=== PATIENT | female | born 1980 | race Caucasian/White ===

== ENCOUNTER 2018-12-03 13:34 | Inpatient (IN) | payer OTHER ==
[~2018-12-03] VITALS: Ht 162.6 cm; Wt 107.3 kg
--- OUTSIDE RECORDS SUMMARY | ~2018-12-03 | XMS | Clinical Summary ---
Demographics + + + | Address | [address] [place] [address] | | | [place] [address] | + + + | Home Phone | | + + + | Preferred Language | Unknown | + + + | Marital Status | | + + + | Methodist Affiliation | Unknown | + + + | Race | Unknown | + + + | Ethnic Group | Unknown | + + + Author + + + | Author | [facility] | | | and [place] | + + + | Organization | [facility] | | | and [place] | + + + | Address | Unknown | + + + | Phone | Unavailable | + + + Support + + +---------+ + | Name | Relationship | Address | Phone | + + +---------+ + | Stan Guidry | ECON | Unknown | | + + +---------+ + Care Team Providers + +------+ + | Care Coupon Clerk Name | Role | Phone | + +------+ + | Marc Villela MD | PCP | | + +------+ + Allergies No Known Allergies Medications + + + +---------+------+------+-------+ | Medication | Sig | Dispensed | Refills | Star | End | Statu | | | | | | t | Date | s | | | | | | Date | | | + + + +---------+------+------+-------+ | FLUoxetine | Take 20 mg by mouth | | 0 | | | Activ | | (PROZAC) 20 mg | Daily. | | | | | e | | capsule | | | | | | | + + + +---------+------+------+-------+ Active Problems + + + | Problem | Noted Date | + + + | Bilateral carpal tunnel syndrome | 05/21/2016 | + + + Family History + + +------+ + | Medical History | Relation | Name | Comments | + + +------+ + | Depression | Father | | | + + +------+ + | Hypertension | Father | | | + + +------+ + | Diabetes | Maternal | | | | | Grandfath | | | | | er | | | + + +------+ + | Breast cancer | Maternal | | GREAT | | | Grandmoth | | | | | er | | | + + +------+ + | No known problems | Mother | | | + + +------+ + | Coronary artery | Paternal | | | | disease | Grandfath | | | | | er | | | + + +------+ + | Depression | Paternal | | | | | Grandfath | | | | | er | | | + + +------+ + | Depression | Sister | | | + + +------+ + + +--------+--------+ + | Relation | Name | Status | Comments | + +--------+--------+ + | Father | | | | + +--------+--------+ + | Maternal Grandfather | | | | + +--------+--------+ + | Maternal Grandmother | | | | + +--------+--------+ + | Mother | | | | + +--------+--------+ + | Paternal Grandfather | | | | + +--------+--------+ + | Sister | | | | + +--------+--------+ + | Son | DEACON | | | + +--------+--------+ + | Son | ALIE | | | + +--------+--------+ + Social History + +-------+ +--------+------+ | Tobacco Use | Types | Packs/Day | Years | Date | | | | | Used | | + +-------+ +--------+------+ | Never Smoker | | | | | + +-------+ +--------+------+ + + +---------+ + | Alcohol Use | Drinks/We | oz/Week | Comments | | | ek | | | + + +---------+ + | No | 0 | 0.0 | | | | Standard | | | | | drinks or | | | | | | | | | | equivalen | | | | | t | | | + + +---------+ + + + + | Sex Assigned at | Date Recorded | | | | + + + | Not on file | | + + + + + + + | Job Start Date | Occupation | Industry | + + + + | Not on file | Not on file | Not on file | + + + + + + + + | Travel History | Travel Start | Travel End | + + + + + + | No recent travel history available. | + + Last Filed Vital Signs + + + + | Vital Sign | Reading | Time Taken | + + + + | Blood Pressure | 139/87 | 05/21/2016 1356 PDT | + + + + | Pulse | 81 | 05/21/20166 PDT | + + + + | Temperature | - | - | + + + + | Respiratory Rate | - | - | + + + + | Oxygen Saturation | - | - | + + + + | Inhaled Oxygen | - | - | | Concentration | | | + + + + | Weight | 116.6 kg (257 lb) | 05/21/20166 PDT | + + + + | Height | 163.8 cm (5' 4.5") | 05/21/2016 1356 PDT | + + + + | Body Mass Index | 43.43 | 05/21/2016 135 PDT | + + + + Plan of Treatment + + + + + | Health Maintenance | Due Date | Last Done | Comments | + + + + + | Vaccine: | | | | | Dtap/Tdap/Td (1 - | 1 | | | | Tdap) | | | | + + + + + | Cervical Cancer | | | | | Screening (Pap) | 2 | | | + + + + + | Vaccine: Influenza | | | | | (#1) | 9 | | | + + + + + Results Not on filefrom Last 3 Months Insurance +-------+--------+ +--------+ + +------+ | Payer | Benefi | Subscriber | Effect | Phone | Address | Type | | | t Plan | ID | [id number] | | | | | | / | | Dates | | | | | | Group | | | | | | +-------+--------+ +--------+ + +------+ | MODA | MODA | [id number] | 04/25/19 | [phone] | [address] | PPO | | | [place] | | 15-Pre | 9 | [id number] | | | | | | sent | | [place], | | | | [place] | | | | [place] [address] | | | | Y PPO | | | | | | +-------+--------+ +--------+ + +------+ + +--------+ +--------+ + + | Guarantor Name | Accoun | Relation to | Date | Phone | Billing Address | | | t Type | Patient | of | | | | | | | | | | + +--------+ +--------+ + + | Simona Guidry | Person | Self | [birth year] | [id number] | | | [place] | | 1981 | [phone] | [place] | | | [place] | | | [address] (Home) | [phone] | + +--------+ +--------+ + + Advance Directives Patient has advance care planning documents on file. For more information, please contact:[facility] [place] [address]
--- OUTSIDE RECORDS SUMMARY | ~2018-12-03 | XMS | Clinical Summary ---
Demographics + + + | Address | [address] | | | [place] [address] | + + + | Home Phone | | + + + | Preferred Language | Unknown | + + + | Marital Status | | + + + | Uatsdin Affiliation | Unknown | + + + | Race | Unknown | + + + | Ethnic Group | Unknown | + + + Author + + + | Author | [facility] (Historical as of | | | 10-10-18) | + + + | Organization | [facility] (Historical as of | | | 10-10-18) | + + + | Address | Unknown | + + + | Phone | Unavailable | + + + Support + + + + + | Name | Relationship | Address | Phone | + + + + + | Stan Guidry | ECON | [address] | | | | | [place], [place] | | | | | [address] | | + + + + + Care Team Providers + +------+ + | Care Creel Clerk Name | Role | Phone | + +------+ + PP | Unavailable | + +------+ + Allergies Not on File Current Medications Not on file Active Problems Not on file Social History + +-------+ +--------+------+ | Tobacco Use | Types | Packs/Day | Years | Date | | | | | Used | | + +-------+ +--------+------+ | Never Assessed | | | | | + +-------+ +--------+------+ + + + | Sex Assigned at | Date Recorded | | | | + + + | Not on file | | + + + Plan of Treatment Not on file Results Not on filefrom Last 3 Months"
--- OUTSIDE RECORDS SUMMARY | ~2018-12-03 | XMS | Clinical Summary ---
Demographics + + + | Address | [address] | | | [place] [address] | + + + | Home Phone | | + + + | Preferred Language | Unknown | + + + | Marital Status | | + + + | Latter-Day Affiliation | Unknown | + + + | Race | Unknown | + + + | Ethnic Group | Unknown | + + + Author + + + | Author | [facility] (Historical as of | | | 10-10-18) | + + + | Organization | [facility] (Historical as of | | | 10-10-18) [...] [place], [place] | | | | | [address] | | + + + + + Care Team Providers + +------+ + | Care Nursery Teacher Name | Role | Phone | + [...]
--- OUTSIDE RECORDS SUMMARY | ~2018-12-03 | XMS | Clinical Summary ---
Demographics + + + | Address | [address] [place] [address] | | | [place] [address] | + + + | Home Phone | | + + + | Preferred Language | Unknown | + + + | Marital Status | | + + + | Lutheran Affiliation | Unknown | + + + | Race | Unknown | + + + | Ethnic Group | Unknown | + + + Author + + + | Author | [facility] | | | and [place] | + + + | Organization | [facility] | | | and [place] | [...] Team Providers + +------+ + | Care Senior Education Specialist Name | Role | Phone | + [...] + +------+ | MODA | MODA | [id number] | 04[birth year] | [phone] | [address] | PPO | | | [place] | | 15-Pre | 9 | [phone] | | | | | | sent | | [place], | | | | [place] | | | | [place] [address] | | | | Y PPO | [...] Person | Self | [birth year] | [id number] | | | al/[place] | | 1981 | [phone] | [place] | | | [place] | | | [address] (Home) | [address] | + +--------+ +--------+ + + Advance Directives Patient has advance care planning documents on file. For more information, please contact:[facility] [place] [address]
[~2018-12-03 13:34] MED LIST: FLUOXETINE HCL20 MG PO; MIRENA1 EACH IY; NORCO 5-325 TA1 EACH PO
--- NOTE | 2018-12-03 14:16 | NUR ---
DIRECT ADMIT FROM DR. THAKKAR, DR. BEYER. VITAL SIGNS TAKEN, PATIENT REPORTS SMALL AMOUNT OF PAIN IN ABDOMEN. UP TO HIBACLEANSE SHOWER. IV IN RAC. LUNG SOUNDS CLEAR. ORIENTED TO ROOM, PATIENT INDEPENDENT, CALL LIGHT WITHIN REACH.
--- NOTE | 2018-12-03 14:20 | NUR ---
PATIENT ARRIVED AT 1345 TODAY. SHE TOOK A [employer] SHOWER.
--- NOTE | 2018-12-03 16:17 | NUR ---
PATIENT SITTING UP IN BED WITH IN ROOM. IV ABX FINISHED INFUSING. DRLR CONTINUES RUNNING AT 150 MLS/HR. NEW ORDERS ACKNOWLEDGED. SCDS PUT ON. DENIES FURTHER NEEDS AT THIS TIME, CALL LIGHT WITHIN REACH.
--- NOTE | 2018-12-03 16:18 | NUR ---
MED REC COMPLETE
--- NOTE | 2018-12-03 16:59 | NUR ---
PATIENT SITTING UP IN BED, DENIES ANY NEEDS AT THIS TIME. CALL LIGHT WITHIN REACH.
--- NOTE | 2018-12-03 17:45 | NUR ---
DR. BEYER CALLED REGARDING NPO DIET. ORDER OF CLEAR LIQUIDS. PATIENT GIVEN 300 MLS OF WATER, ADVISED TO TAKE SLOW, SMALL SIPS. PATIENT AGREEABLE. NO FURTHER NEEDS AT THIS TIME, CALL LIGHT WITHIN REACH.
--- NOTE | 2018-12-03 18:45 | NUR ---
PATIENT REPORTS HEADACHE, IV OFIRMEV ADMINISTERED.
--- NOTE | 2018-12-03 19:00 | NUR ---
PATIENT REPORTS PAIN OF 8/10, PRN PAIN MEDICATION GIVEN. REPORTS LIGHTHEADEDNESS AND NAUSEA WITH PAIN MEDICATION. DECLINES ANTIEMETIC AT THIS TIME. PATIENT RECHECKED 10 MINUTES LATER AND REPORTS NO NAUSEA. HOB LOWERED, LIGHTS DIMMED, NO FURTHER NEEDS AT THIS TIME. CALL LIGHT WITHIN REACH.
--- NOTE | 2018-12-03 19:47 | NUR ---
PATIENT VISITING WITH AND [id number]-AT THIS TIME. JUST MEDICATED FOR 2/10 PAIN BY OFF GOING NURSE MECHELLE.
--- NOTE | 2018-12-03 20:19 | NUR ---
PATIENT JUST UP AND AMBULATED TO THE BATHROOM AND BACK WITH HER IV POLE AND 1 PERSON STANDBY ASSIST AND THEN BACK TO BED WITH NO PROBLEMS. CALL LIGHT IN REACH.
--- NOTE | 2018-12-03 20:57 | NUR ---
IV BEEPING BUT IS NOW INFUSING FINE. PT DENIES NEEDS AT THIS TIME AND CALL LIGHT IS CLOSE.
--- NOTE | 2018-12-03 21:52 | NUR ---
IV WAS BEEPING ABX COMPLETE. IV IN RT ARM IS NOW SL. OTHER IV IS INFUSING FLUIDS WELL. PT DENIES FURTHER NEEDS AT THIS TIME. CALL LIGHT IS CLOSE.
--- NOTE | 2018-12-03 23:03 | NUR ---
PATIENT WAS RESTING QUIETLY, IV BAG JUST CHANGED, PATIENT HAD NO NEEDS AT THIS TIME. CALL LIGHT IN REACH.
--- NOTE | 2018-12-04 01:31 | NUR ---
PATIENT HAS 5/10 HEADACHE AND GIVEN IV TYLENOL. CALL LIGHT IN REACH.
--- NOTE | 2018-12-04 02:58 | NUR ---
PATIENT RESTINNG QUIETLY SUPINE, EYES CLOSED, RESPIRATIONS REGULAR AND EVEN, PATIENT APPEARS IN NO DISTRESS. CALL LIGHT IN REACH.
--- NOTE | 2018-12-04 06:08 | CONS ---
[facility] [address], [place] [address] Signed DATE OF CONSULTATION: 12/03/2018 CHIEF COMPLAINT: Right lower quadrant abdominal pain. HISTORY OF PRESENT ILLNESS: Tony is a 38-year-old obese female, who for the last 5 or 6 days had significant right lower quadrant abdominal pain, but also generalized abdominal pain. She has had nausea and now some fevers. She went to her primary care provider earlier today. White count was up at 12.6 with a negative beta-hCG. She was tender in the right lower quadrant. She was sent over to the x-ray department for CT scan of abdomen and pelvis. She has an inflammatory mass and thickened small bowel involved as well concerning for appendicitis. I was therefore asked to admit her as the general surgeon on-call. In the meantime, I finished operating, I have come down to see Tony and her . She is a little dehydrated overall, but otherwise seems to be doing well. PAST MEDICAL HISTORY: Depression and a small hiatal hernia. PAST SURGICAL HISTORY: x3, tonsillectomy, adenoidectomy, bilateral carpal tunnel surgeries by Dr. Gregorio Cruz. SOCIAL HISTORY: She does not smoke or drink. She is to her at [phone], and her mother is at [phone]. Dr. Thais Villela is her primary care provider. She has three children. She has a master's in education from [employer]. 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 FAMILY HISTORY: Father had hypertension, depression. Mom is a prediabetic. Maternal grandfather had diabetes. REVIEW OF SYSTEMS: She had 10 systems reviewed and she has intentionally lost 30 pounds in last two months, on Optavia. ALLERGIES: None. MEDICATIONS: Prozac 20 mg p.o. daily. Electronically Signed By: CHANG BEYER MD 12/04/18 0608 PATIENT NAME: TONY ELDER CONSULTATION DATE OF : 82 REPORT #: [id number] PHYSICIAN: CHANG BEYER MD PCP: THAIS VILLELA MD REPORT IS CONFIDENTIAL AND NOT TO BE RELEASED WITHOUT AUTHORIZATION [facility] [address], [place] [address] Signed PHYSICAL EXAMINATION: VITAL SIGNS: Her blood pressure is 124/77, heart rate 104, respiratory rate 16, temperature is 98.4, she is 100% on room air. She is 5 feet 4 inches, at 231 pounds. GENERAL: Ant is a 38-year-old female, lying supine in her hospital bed with her at the bedside. She does not appear systemically ill or toxic. She has good skin color. She is alert, awake, interactive, and is excellent historian. LUNGS: Clear to auscultation bilaterally. HEART: Mildly tachycardic. ABDOMEN: Obese, but generally soft. She clearly has tenderness in the right lower quadrant. No diffuse peritonitis. LABORATORY DATA: Her white blood cell count is 12.6, neutrophils 76, hemoglobin 12, BUN 10, creatinine 0.78. Beta-hCG negative. Urinalysis showed some leukocyte esterase and apparently a urine culture has been sent. Her liver function tests are negative. Albumin is good at 4.2. RADIOGRAPHIC STUDIES: A CT scan of abdomen and pelvis is reviewed along with the report and one can see the intense inflammatory process in the right lower quadrant with some thickened small bowel. No obvious abscess or free air. ASSESSMENT AND PLAN: Tony is a 38-year-old female, who presents with what appears to be appendicitis probably over the last 5-6 days. The nurses have already given Tony and her some literature on appendicitis. I reviewed with Tony her findings as well as the location of function of the appendix. We have discussed laparoscopic versus open appendectomy. She certainly is at high risk for an open appendectomy given her history. We also reviewed the expected intraop and postop course. There is risk of surgery including, but not limited to bleeding, infection, scarring, change in contour of the skin, damage to bowel, appendiceal stump leak, postoperative intraabdominal abscess, incisional hernias, and other unforeseen comorbidities. She has expressed understanding and would like to proceed. There is another elective surgery going currently and it is quite the case and we may have to do Tony's procedure in the morning. She has expressed understanding and agrees above plan. Chang Beyer MD ALB/MODL Electronically Signed By: CHANG BEYER MD 12/04/18 0608 PATIENT NAME: TONY ELDER DONA CONSULTATION DATE OF : 82 REPORT #: [id number] PHYSICIAN: CHANG BEYER MD PCP: THAIS VILLELA MD REPORT IS CONFIDENTIAL AND NOT TO BE RELEASED WITHOUT AUTHORIZATION [address] [address] Signed /[id number] cc: MD Thais Steward MD Copies: CHANG BEYER MD, RUSSELL BARR MD ~ Electronically Signed By: CHANG BEYER MD 12/04/18 0608 PATIENT NAME: TONY ELDER CONSULTATION DATE OF : 82 REPORT #: [id number] PHYSICIAN: CHANG BEYER MD PCP: THAIS VILLELA MD REPORT IS CONFIDENTIAL AND NOT TO BE RELEASED WITHOUT AUTHORIZATION
--- NOTE | 2018-12-04 06:27 | NUR ---
PATIENT HAD 6/10 RLQ PAIN AFTER AMBULATING TO THE BATHROOM. 1MG IV DILUADID GIVEN AFTER PREMEDICATING WITH 8MG IV ZOFRAN THE DILUADID MAD HER SICK TO HER STOMACH. PATIENT FEEELING BETTER AND JUST LEFT FOR SURGERY AND WENT WITH OR STAFF TO HANG OUT IN PRE-OP. 8AM ANTIBIOTICS WENT WITH THE OR CREW.
--- NOTE | 2018-12-04 09:00 | NUR ---
PATIENT IN OR. WILL ATTEMPT TO SEE LATER.
--- NOTE | 2018-12-04 09:27 | NUR ---
PT ALERT, ORIENTED AND SUPPORTED BY HER JESSI. PT IS SCHEDULED TO HAVE LAP APPY-BOTH SEEM PREPARED. DR BEYER IN, EXTENDED A BLESSING. WILL FOLLOW NEEDED
--- NOTE | 2018-12-04 09:27 | NUR ---
12/04/18 0927 DOMINGO MENDEZ 0923 PATIENT ARRIVED FROM PACU WITH ORAL AIRWAY ON 6L OF O2. PATIENT APPEARS TO BE RESTING COMFORTABLY WITH RR EVEN AND UNLABORED. PATIENT HAS NO RESPONE TO STIMULUS
--- NOTE | 2018-12-04 09:30 | NUR ---
PACU CALLED, PATIENT TO RETURN TO ME IN APPROXIMATELY 20 MINUTES. AND FAMILY TO PATIENT ROOM FOR ARRIVAL. DENY ANY NEEDS.
--- NOTE | 2018-12-04 11:12 | NUR ---
PATIENT RETURNS TO NE VIA HOSPITAL BED. REPORT RECEIVED. PATIENT ON RA, SPO2 OF 92%. PATIENT REPORTS NAUSEA, PRN ANTIEMETIC GIVEN. SLIGHT RELIEF FROM MEDICATION. PATIENT IN HIGH FOWLERS POSITION WITH EMESIS BAG. D5LR RUNNING AT 100 MLS/HR. SODIUM PHOSPHATE RUNNING AT 64 MLS/HR WITH NS. MIDLINE INCISION HAS JUANA, GAUZE AND TAPE. IT IS CLEAN, DRY, AND INTACT. SLIGHT SHADOWING ON THE RIGHT ABDOMINAL LAP SITE. HYPOACTIVE BOWEL TONES. WILL CONTINUE TO MONITOR. SMALL SIP OF WATER PROVIDED. CALL LIGHT WITHIN REACH.
--- NOTE | 2018-12-04 11:30 | NUR ---
PATIENT LAYING IN HIGH FOWLERS, DROWSY. SPO2 OF 94% ON RA, 18 BREATHS/MIN THAT ARE SHALLOW, EVEN, AND UNLABORED. PATIENT DENIES NAUSEA, RATES PAIN OF 6/10. D5LR RUNNING AT 100 MLS/HR. SODIUM PHOSPHATE RUNNING AT 64 MLS/HR WITH NS. MIDLINE INCISION REMAINS CLEAN, DRY AND INTACT. SHADOWING ON RIGHT ABDOMINAL LAP SITE HAS INCREASED TO THE SIZE OF A DIME. WILL CONTINUE TO MONITOR. SMALL SIPS OF WATER PROVIDED. CALL LIGHT WITHIN REACH.
--- NOTE | 2018-12-04 12:14 | NUR ---
PATIENT VITAL SIGNS TAKEN. SPO2 OF 94% ON RA, SHALLOW RESPIRATIONS OF 16 THAT ARE EVEN AND UNLABORED. MIDLINE INCISION IS CLEAN, DRY, AND INTACT. SHADOWING ON RIGHT ABDOMINAL LAP SITE REMAINS THE SIZE OF A DIME. PATIENT REPORTS PAIN OF 6/10, PRN PAIN MEDICATION GIVEN. DENIES NAUSEA. ICE APPLIED TO MIDLINE INCISION. BLINDS CLOSED, LIGHTS DIMMED. SMALL SIPS OF WATER PROVIDED. PATIENT REMAINS DROWSY. DENIES FURTHER NEEDS AT THIS TIME, CALL LIGHT WITHIN REACH.
--- NOTE | 2018-12-04 12:48 | NUR ---
PATIENT SLEEPING IN BED WITH IN ROOM SLEEPING ON COUCH. SPO2 OF 94% ON RA. IV FLUIDS CONTINUE INFUSING. LIGHTS DIMMED, CALL LIGHTS WITHIN REACH.
--- NOTE | 2018-12-04 13:14 | NUR ---
PATIENT IS SLEEPING IN BED WITH SLEEPING ON COUCH. VITAL SIGNS TAKEN, SPO2 OF 94% ON RA. MIDLINE INCISION IS CLEAN, DRY AND INTACT. SHADOWING REMAINS THE SIZE OF A DIME ON THE RIGHT ABDOMINAL LAP SITE. PATIENT DENIES NAUSEA, REPORTS PAIN OF 6/10. ICE PACK IS APPLIED TO THE MIDLINE INCISION. DENIES FURTHER NEEDS AT THIS TIME, CALL LIGHT WTIHIN REACH.
--- NOTE | 2018-12-04 14:02 | NUR ---
PATIENT CALLED TO USE THE BATHROOM. PATIENT HAD A HARD TIME SITTING UP DUE TO PAIN. RN NOTIFIED AND WILL BRING IN PAIN MENDS FOR THE PATIENT. IN ROOM SCD'S ON PATIENT. CALL BUTTON IN REACH.
--- NOTE | 2018-12-04 16:30 | NUR ---
PATIENT SLEEPING IN BED WITH FAMILY IN ROOM. SPO2 OF 95% ON ROOM AIR, BREATHING EVEN AND UNLABORED. CALL LIGHT WITHIN REACH.
--- NOTE | 2018-12-04 16:44 | OR ---
[facility] [address], [place] [address] Signed DATE OF OPERATION: 12/04/2018 SURGEON: Chang Beyer MD PREOPERATIVE DIAGNOSIS: Acute appendicitis. POSTOPERATIVE DIAGNOSIS: Acute suppurative appendicitis. PROCEDURE PERFORMED: Laparoscopic converted to an open appendectomy. ESTIMATED BLOOD LOSS: Minimal. FINDINGS: Tony had a significantly inflamed, thickened, and adherent appendix and mesoappendix. Consequently, she was converted from a laparoscopic to an open appendectomy. INDICATIONS: Tony is a 38-year-old female at 5 foot 4 inches and weighs 231 pounds. She has been on a weight loss program and lost 30 pounds in the last couple of months. She had noticed about 5 to 6 days of which she thought was generalized abdominal pain, but certainly located in the right lower quadrant over that same time. She has had nausea and fevers. She went to her primary care provider on the day of admission. Laboratory work showed a white blood cell count slightly high at 12.6 with a negative beta-hCG. There was concern for appendicitis. She was sent over to our Radiology Department for CT scan of abdomen and pelvis. She has an intense inflammatory process in the mid to right lower quadrant, also involving thickened small bowel. No obvious abscess. No free air. I was asked to admit her as the general surgeon on-call. I met with Tony and her last evening. I reviewed the above findings with them. She clearly had localized peritonitis directly over the area of this inflammatory process on a CT scan. It is actually cephalad to Evangelinaey's point. It is more right mid quadrant. I explained to Tony and her the location and function of the appendix. We discussed laparoscopic versus an open appendectomy. 3% of our appendectomies were performed open. She is certainly at risk for that category. We also reviewed the expected intraop and postop course. There is risk to surgery including, but not limited to bleeding, infection, scarring, change in contour of the skin, damage to bowel, appendiceal stump leak, postoperative intraabdominal abscess, incisional hernias, and other unforeseen Electronically Signed By: CHANG BEYER MD 12/04/18 1644 PATIENT NAME: TONY ELDER OPERATIVE REPORT DATE OF : 82 REPORT #: [id number] PHYSICIAN: CHANG BEYER MD PCP: THAIS LEBRON MD REPORT IS CONFIDENTIAL AND NOT TO BE RELEASED WITHOUT AUTHORIZATION [facility] [address], [place] [address] Signed comorbidities. She and her had expressed understanding and wished to proceed. There was a very large surgery going last night till 10 p.m., which occupied our nursing staff and our anesthesia staff. Consequently, we gave Tony IV antibiotics, IV fluids, and pain control with plans to do her first thing in the morning. She actually is a little dehydrated, came to the hospital, and she looked and actually felt much better this morning. In fact, the white count dropped below normal. PROCEDURE NOTE: I met with Tony and her once again in our preop area. I could see she was much better hydrated in her eyes, in her mouth, and so forth. After answering her questions, she was taken to the operating room and placed in the supine position under general endotracheal tube anesthesia. We placed our laparoscopic trocars under direct visualization without difficulty. We could easily see the inflammatory process with some reactive fluid down in the pelvis. I could easily see the cecum and the anterior taenia coli. We spent a few minutes with laparoscopic equipment to bring that down off the right mid quadrant abdominal wall, underneath the appendix traveled posteriorly and then in a retrocecal fashion, and came back up to the base of the appendix. It was intensely inflamed, very thickened, and adherent to the abdominal sidewall. We found similar findings with the base of the appendix as it joins the cecum. Consequently, it was not safe to do this laparoscopically, certainly not safe to use our staplers across the appendiceal stump nor the mesoappendix. Consequently, we decided to convert it to an open procedure. At that point, we simply extended her vertical periumbilical incision to the width of my hand. With Sandoval retractors, we were able to easily locate the cecum and appendix and with blunt digital dissection, I was able to work it loose posteriorly with some gentle cautery then. We worked through her cecum and her appendix and the terminal ileum over to the midline and up through the incision. It actually took me a few minutes with some blunt dissection to get the appendix free of the terminal ileum itself. The base of the appendix and cecum were quite inflamed. We went ahead and divided that with an #0 Vicryl suture tie. We then dump the appendiceal stump after gentle cautery. We oversew that with four #0 Vicryl sutures in Lembert fashion. This completely dumped the appendiceal stump into the base of the cecum. The mesoappendix was quite thickened, inflamed, and we had come across that with a Pean clamp. As expected, that was unsuccessful and we had to oversew the appendiceal artery twice with #0 Vicryl [id number] suture with good hemostasis. After this, the cecum and terminal ileum were copiously irrigated and cleaned. We then irrigated and suctioned out the right mid quadrant of the abdomen. There was inflammation, but no obvious abscess cavity. Consequently, no drain was placed. After this, the bowel was returned to the abdomen and the omentum was brought back down over the bowel. We had closed our right subcostal trocar site with our laparoscopic equipment previously with an #0 Vicryl suture. We then went ahead and closed the midline periumbilical incision with Electronically Signed By: CHANG BEYER MD 12/04/18 1644 PATIENT NAME: TONY ELDER OPERATIVE REPORT DATE OF : 82 REPORT #: [id number] PHYSICIAN: CHANG BEYER MD PCP: THAIS LEBRON MD REPORT IS CONFIDENTIAL AND NOT TO BE RELEASED WITHOUT AUTHORIZATION [facility] [address] [place] [id number] Signed interrupted [id number] and simple #1 PDS sutures. We injected local anesthetic into the abdominal wall as well as the subcutaneous tissues. The wound was irrigated and suctioned out until clear. The dermis was reapproximated on all three incisions with interrupted 3-0 subcuticular Monocryl sutures. We used a 5-0 fast absorbing plain gut suture to reapproximate the skin on her midline vertical periumbilical incision. Dry gauze and tape were then applied to all three incisions. Her Tanner catheter had been discontinued without difficulty. She was awakened from her anesthesia, extubated in the OR, and taken to recovery room in stable condition. Chang Beyer MD ALB/MODL /[id number] cc: MD Chang Wheeler MD Copies: THAIS LEBRON MD, ANDREW L MD ~ Electronically Signed By: CHANG BEYER MD 12/04/18 1644 PATIENT NAME: TONY ELDER OPERATIVE REPORT DATE OF : 82 REPORT #: [id number] PHYSICIAN: CHANG BEYER MD PCP: THAIS LEBRON MD REPORT IS CONFIDENTIAL AND NOT TO BE RELEASED WITHOUT AUTHORIZATION
--- NOTE | 2018-12-04 18:54 | NUR ---
PATIENT REPORTS PAIN OF 6/10, PRN PAIN MEDICATION GIVEN. DENIES FURTHER NEEDS AT THIS TIME, CALL LIGHT WITHIN REACH.
--- NOTE | 2018-12-04 19:43 | NUR ---
DR. BEYER NOTIFIED OF URINE OUTPUT. ORDER TO GIVE LR AT 250 MLS/HR OVER 4 HOURS, THEN RESUME D5LR AT 125 MLS/HR. FAMILY IN ROOM, DENIES ANY FURTHER NEEDS AT THIS TIME, CALL LIGHT WITHIN REACH.
--- NOTE | 2018-12-04 20:16 | NUR ---
DAY SHIFT JUST CALLED DR. BEYER AND BOLUS STARTED.
--- NOTE | 2018-12-04 21:46 | NUR ---
vitals and I&Os done
--- NOTE | 2018-12-04 23:08 | NUR ---
PATIENT WAS ASLEEP AND THEN SHE COUGHED AND SAID SHE STARTED HAVING 8/10 ABD PAIN AND 1MG IV DILAUDID GIVEN. PATIENT HAS CALL LIGHT IN REACH AND WILL CALL TO USE THE BATHROOM WHEN PAIN HAS GONE DOWN.
--- NOTE | 2018-12-04 23:47 | NUR ---
SBA PT BK TO BED
--- NOTE | 2018-12-05 00:44 | NUR ---
2PA PT TO BR, 2PA BK TO BED
--- NOTE | 2018-12-05 01:02 | NUR ---
PATIENT HAS BEEN RESTING QUIETLY, ABD PAIN 5/10 FOR NOW AND PATIENT DOES NOT WANT TO TAKE ANY PAIN MEDS YET. CALL LIGHT IS IN REACH WILL CALL WHEN READY FOR MEDS.
--- NOTE | 2018-12-05 01:55 | NUR ---
PATIENT RESTING QUIETLY IN SEMI-FOWLERS POSITION, EYES CLOSED, RESPIRATIONS REGULAR AND EVEN. CALL LIGHT IN REACH.
--- NOTE | 2018-12-05 03:04 | NUR ---
PATIENT'S PAIN 5/10 IN THE ABD, BUT NOT WANTING PAIN MEDS YET. HAS BEEN RESTING QUIETLY. NO OTHER NEEDS AT THIS TIME. CALL LIGHT IN REACH.
--- NOTE | 2018-12-05 03:57 | NUR ---
pt c/o 10/03 abd inciional pain. Medicated with Dilaudid 1mg IV . Warm blanket and fresh water given on requests, In bed, room air, CPOX in place. IVF infusing w/o problems
--- NOTE | 2018-12-05 05:20 | NUR ---
PATIENT AMBULATED TO THE BATHROOM WITH IV POLE AND 1PSBA AND THEN BACK TO BED. PATIENT FAIRLYCOMFORTABLE, RIGHT LEG ELEVATED ON 2 PILLOWS AGAIN AND NEW ICE WATER GIVEN. PATIENT GOING TO TRY AND GET SOME MORE SLEEP. CALL LIGHT IN REACH.
--- NOTE | 2018-12-05 05:27 | NUR ---
PATIENT'S PAIN HAS BEEN FAIRLY WELL CONTROLLED WITH IV PAIN MEDS, MIDLINE INCISION DRESSING CDI, WITH SMALL SHADOWING ON THE 2 LAB SITE DRESSINGS. PATIENT STILL HAS FLUIDS RUNNING PRETTY MUCH AROUND THE CLOCK WITH ANTIBIOTICS AND DID GET THAT 1LITER LR BOLUS WELL OVER 4 HOURS TO INCREASE URINE OUTPUT WHICH IT HAS. PATIENT REST AT THIS TIME AFTER HER LAST DOSE OF PAIN MEDICATION. CALL LIGHT IS IN REACH AND IT IS EASY TO AWAKEN PATIENT.
--- NOTE | 2018-12-05 06:34 | NUR ---
PATIENT REQUESTED TYLENOL FOR HEADACHE 06/03 AND ONLY HAD IV OR SUPPOSITORY ORDERED SO IV DOSE IS RUNNING RIGHT NOW AT PATIENT'S REQUEST. CALL LIGHT IN REACH.
--- NOTE | 2018-12-05 08:00 | NUR ---
DR. BEYER IN TO DISCUSS POC WITH PATIENT. DRESSINGS REMOVED FROM MIDLINE INCISION AND LAP SITES. AM MEDICATIONS ADMINISTERED, TOLERATED WELL. ASSESSMENT COMPLETE. PATIENT AMBULATED TO TOILET WITH 1 PERSON SBA, VOIDING WELL. AMBULATED BACK TO BED WITH 1 PERSON SBA. DENIES ANY FURTHER NEEDS AT THIS TIME, CALL LIGHT WITHIN REACH.
--- NOTE | 2018-12-05 10:00 | NUR ---
PATIENT LAYING IN BED WITH IN ROOM. IV FLUIDS AND ABX CONTINUE INFUSING. PATIENT REPORTS PAIN OF 6/10, PRN PAIN MEDICATION ADMINISTERED. DENIES FURTHER NEEDS AT THIS TIME, CALL LIGHT WITHIN REACH.
--- NOTE | 2018-12-05 14:00 | NUR ---
PATIENT AMBULATED THE HALLS WITH FWW AND 1 PERSON SBA. SALINE LOCKED. DENIES NAUSEA OR PASSING GAS. REPORTS PAIN OF 7/10, PRN PAIN MEDICATION GIVEN. PATIENT AMBULATED BACK TO BED, RECONNECTED TO IV FLUIDS AND ABX. DENIES FURTHER NEEDS AT THIS TIME, CALL LIGHT WITHIN REACH.
--- NOTE | 2018-12-05 15:11 | NUR ---
PATIENT LAYING IN BED WITH EYES CLOSED. IN ROOM. IV ABX'S HUNG, IV IS PATENT. REPORTS PAIN OF 6/10 AFTER PRN PAIN MEDICATION GIVEN ONE HOUR PRIOR. ICE PACK TO MIDLINE INCISION OFFERED. DENIES FURTHER NEEDS AT THIS TIME, CALL LIGHT WITHIN REACH.
--- NOTE | 2018-12-05 17:15 | NUR ---
DR. BEYER CALLED AND NOTIFIED OF TEMP OF 101.4. PATIENT HR IN THE 90'S, WHICH IS ELEVATED FROM 70-80'S DURING THE SHIFT. SHE REPORTS MALAISE, CHILLS, AND FEELING "ACHY." TYLENOL SUPPOSITORY ADMINISTERED. WILL CONTINUE TO MONITOR HER TEMPERATURE.
--- NOTE | 2018-12-05 20:16 | NUR ---
PATIENT HAVING 5/10 ABD PAIN AND GOT 2MG PO DILUADID AND THEN IS GETTING UP WITH THE MANAGER ENVIRONMENT[employer] SERVICES TO THE RESTROOM. AT BEDSIDE.
--- NOTE | 2018-12-05 21:53 | NUR ---
DISCUSSED WITH CHARGE NURSE CALLING DR. BEYRE FOR A PO TYLENOL ORDER FOR PATIENT'S AMBROSE SHE ONLY HAS A SUPPOSITORY ORDER AND [employer] MAKES HER ITCH. [employer] DIRECTOR OK WITH THIS AND DR. BEYER WAS CALLED AND A TELEPHONE ORDER WAS GIVEN FOR 650MG PO TYLENOL Q8HRS PRN FOR MINOR PAIN AND FEVER. THIS WAS READ BACK AND CONFIRMED WITH DR. BEYER AND ORDERED.
--- NOTE | 2018-12-05 21:54 | NUR ---
PT USED RESTROOM, VS AND I&OS ARE COMPLETE.
--- NOTE | 2018-12-05 22:26 | NUR ---
PATIENT JUST GOT 650MG OF PO TYLENOL FOR AMBROSE OF 07/03. CALL LIGHT IN REACH.
--- NOTE | 2018-12-05 22:46 | NUR ---
PATIENT RESTING QUIETLY, EYES CLOSED, NO FACIAL GRIMACE, RESPIRATIONS REGULAR AND EVEN, SATS 92% ON RA ON PULSE OX WITH HR=96. CALL LIGHT IN REACH.
--- NOTE | 2018-12-06 00:53 | NUR ---
PATIENT RESTING QUIETLY, EYES CLOSED, RESPIRATIONS REGULAR AND EVEN. O2 SATS ARE 92% ON RA ON C-POX WITH A HR=88. NO FACIAL GRIMACE. PATIENT DID NOT AWAKEN TO ASK FOR ANYTHING WHILE I WAS IN THE ROOM. CALL LIGHT IN REACH.
--- NOTE | 2018-12-06 01:30 | NUR ---
PATIENT CALLED AND WOKE UP AND ASKED FOR PAIN MEDICATION FOR ABD PAIN 06/03. 2MG PO DILAUDID GIVEN. ICE WATER FILLED. CALL LIGHT IN REACH.
--- NOTE | 2018-12-06 02:55 | NUR ---
PATIENT CALLED TO GET UP AND USE THE BATHROOM AND IN THE PROCESS OF GETTING UP SHE GECAME VERY NAUSEATED AND VOMITED SEVERAL TIMES. 8MG IV ZOFRAN WERE GIVEN. THIS NURSE REMAINS AT BEDSIDE.
--- NOTE | 2018-12-06 03:01 | NUR ---
PATIENT SAYS THE ZOFRAN IS WORKING, BUT SHE WANTS TO REST A BIT BEFORE TRYING TO GET UP TO THE BATHROOM. CALL LIGHT IN REACH.
--- NOTE | 2018-12-06 04:52 | NUR ---
PATIENT HAS RESTED ON AND OFF THROUGH THE NIGHT AND THE 2MG PO DILAUDID PILLS SEEM TO WORK PRETTY WELL FOR HER PAIN CONTROL. PATIENT DID GET NAUSEATED THIS AM WHEN WANTING TO GO TO THE BATHROOM AND HAD TO BE GIVEN 8MG IV ZOFRAN, AND THEN WALKED TO THE BATHROOM WITH PHOTOGRAPHER AERIAL AFTER NAUSEA HAD ABAITED. IV'S INFUSING AND WNL. CALL LIGHT IS IN REACH.
--- NOTE | 2018-12-06 05:11 | NUR ---
PATIENT JUST WOKE UP BECAUSE HER IV PUMP WAS BEEPING AND SAID HER ABD PAIN WAS 5/10 AND WAS GIVEN 1MG IV DILAUDID SHE FELT THE PO DILAUDID MAY HAVE BEEN WHAT MADE HER SICK TO HER STOMACH LAST TIME IT WAS EMPTY. CALL LIGHT IN REACH.
--- NOTE | 2018-12-06 07:10 | NUR ---
PATIENT SLEEPING IN BED, ROUSES TO VERBAL STIMULATION. REPORT RECEIVED BEDSIDE. D5LR RUNNING AT 125 MLS/HR. PATIENT DENIES NAUSEA. NO FURTHER NEEDS AT THIS TIME, CALL LIGHT WITHIN REACH.
--- NOTE | 2018-12-06 08:01 | NUR ---
PATIENT SLEEPING IN BED, ROUSES TO VERBAL STIMULATION. IV ABX HUNG, D5LR CONTINUES INFUSING AT 125 MLS/HR. PATIENT REPORTS PAIN OF 3-4, WHICH IS TOLERABLE. ASSESSMENT COMPLETE. MIDLINE INCISION AND LAP SITES ARE WELL APPROXIMATED WITH NO DRAINAGE. ACTIVE BOWEL TONES. PATIENT REPORTS PASSING FLATUS. PLAN OF CARE DISCUSSED WITH PATIENT, SHE IS AGREEABLE. NO FURTHER NEEDS AT THIS TIME, CALL LIGHT WITHIN REACH.
--- NOTE | 2018-12-06 10:29 | NUR ---
PATIENT REPORTS PAIN OF 4/10, PRN PAIN MEDICATION GIVEN. POC FOR DAY REINFORCED, PATIENT WILL AMBULATE HALLWAYS AND SHOWER BEFORE LUNCH. D5LR INFUSING AT 125 MLS/HR, IV ABX CONTINUING TO INFUSE. PATIENT DENIES FURTHER NEEDS AT THIS TIME, CALL LIGHT WITHIN REACH.
--- NOTE | 2018-12-06 12:00 | NUR ---
PT SET UP FOR SHOWER. TO HELP. DENIES PAIN AT THIS TIME. CALL LIGHT IN REACH,
--- NOTE | 2018-12-06 12:42 | NUR ---
PATIENT SITTING UP IN BED WATCHING TV. IN ROOM. ATE 100% OF HER FULL LIQUID TRAY, REPORTS NO PAIN OR NAUSEA WITH EATING. IV FLUIDS RUNNING AT 125 MLS/HR. NO FURTHER NEEDS AT THIS TIME, CALL LIGHT WITHIN REACH.
--- NOTE | 2018-12-06 12:45 | NUR ---
PT AND OUT AMBULATING HALLS. TOLERATING WELL. DENIES PAIN.
--- NOTE | 2018-12-06 14:05 | NUR ---
PATIENT SITTING UP IN BED WATCHING TV. IV ABX HUNG. PATIENT REPORTS PAIN OF 4/10, PRN PAIN MEDICATION GIVEN. NO FURTHER NEEDS AT THIS TIME, CALL LIGHT WITHIN REACH.
--- NOTE | 2018-12-06 15:10 | NUR ---
PT OUT TO AMBULATE MILLER WITH NURSE AT SIDE.
--- NOTE | 2018-12-06 19:00 | NUR ---
CHARGE NURSE REPORT RECEIVED, PT IN BED, WITH COMPANY AT BEDSIDE.
--- NOTE | 2018-12-06 19:14 | NUR ---
RECEIVED REPORT FROM ROSIBEL MIN. pt RESTING IN BED. REQUESTED PAIN MEDICATION, PLAN TO GIVE IN HALF AN HOUR, pt AGREEABLE TO PLAN. NO FURTHER REQUESTS AT THIS TIME. CALL LIGHT WITHIN REACH.
--- NOTE | 2018-12-06 19:50 | NUR ---
THIS RN NOTIFIED THAT pt IV IS LEAKING. CHARGE NURSE NOTIFIED.
--- NOTE | 2018-12-06 20:20 | NUR ---
pt AMBULATING IN MILLER WITH . IV LOCKED AT THIS TIME. CHARGE NURSE INTO ASSESS AFTER pt AMBULATION.
--- NOTE | 2018-12-06 20:48 | NUR ---
DR BEYER CALLED. UPDATED ON pt VOIDING. IVF DECREASED TO 50 ML/HR. pt UPDATED.
--- NOTE | 2018-12-06 22:20 | NUR ---
ASSESSMENT DONE. IV ASSESSED BY EVENT ORGANIZER, KD TO USE. MEDICATIONS GIVEN. MADE A PLAN FOR PAIN MEDICATION ADMINISTRATION DURING THE NIGHT. VITALS AND I&O RECORDED. NO FURTHER REQUESTS AT THIS TIME. CALL LIGHT WITHIN REACH.
--- NOTE | 2018-12-06 23:25 | NUR ---
ASSESSED pt's PAIN. GAVE 1 TABLET OF PRN PAIN MEDICATION WITH CRACKERS. NO FURTHER REQUESTS AT THIS TIME. CALL LIGHT WITHIN REACH.
--- NOTE | 2018-12-07 01:25 | NUR ---
ROUNDED ON pt. DENIED PAIN AT THIS TIME. WILL CHECK BACK IN 1 HOUR. CALL LIGHT WITHIN REACH.
--- NOTE | 2018-12-07 02:47 | NUR ---
ROUNDED ON pt. RESTING IN BED. RATED PAIN 2/10 REQUESTED PRN MED. GIVEN (SEE MAR). ASSESSMENT DONE. NO CHANGES FROM PRIOR. WILL CONTINUE TO MONITOR. CALL LIGHT WITHIN REACH.
--- NOTE | 2018-12-07 05:32 | NUR ---
PAIN 2/10 GAVE PRN (SEE MAR). VITALS AND I&O RECORDED. WATER PROVIDED NO FURTHER REQUESTS AT THIS TIME. CALL LIGHT WITHIN REACH.
--- NOTE | 2018-12-07 06:03 | NUR ---
pt RESTED ON AND OFF DURING SHIFT. PAIN CONTROLLED WITH FREQUENT PO MEDS. IVF INFUSING, RATE DECREASED. IV ABX Q6H. NO NAUSEA REPORTED DURING SHIFT. TOLERATING FULL LIQUID DIET. AMBULATED IN MILLER DURING SHIFT. VOIDING LARGE QUANTITIES. MIDLINE INCISION AND LAP SITES X2, CDI. USES CALL LIGHT APPROPRIATELY.
--- NOTE | 2018-12-07 07:55 | NUR ---
PT LISA MILLERWAY WITH , RAE RENAE.
--- NOTE | 2018-12-07 08:49 | NUR ---
PT SITTING UP IN RECLINER. ATE MOST OF REGULAR DIET BREAKFAST, RAE WELL. DENIES NAUSEA AT THIS TIME. REPORTS POST OP PAIN IN ABD 04/05, DENIES NEED FOR PAIN MEDICATION CURRENTLY. ALERT AND ORIENTED. MIDLINE INCISION WELL APPROXIMATED, NO REDNESS OR DRAINAGE NOTED. LAP SITE TO RIGHT UPPER QUADRANT AND MIDLINE SUPRAPUBIC AREA NOTED, WELL APPROXIMATED, NO DRAINAGE OR REDNESS. PT REPORTS POSITIVE FLATUS. ACTIVE BT. PT REQUESTING STOOL SOFTENER TO ASSIST WITH BM. IV INFUSING WNL IN LEFT AC. AT BEDSIDE. CALL LIGHT WITHIN REACH.
--- NOTE | 2018-12-07 09:32 | NUR ---
SPOKE WITH PATIENT AND IN ROOM. PATIENT UP IN CHAIR. PATIENT AMBULATORY ON OWN IN ROOM. PATIENT PLANS ON RETURNING HOME WITH , NO BARRIERS KNOWN TO GO HOME SAFELY AT DISCHARGE. DISCUSSED POST-OP AND WHAT TO WATCH FOR AFTER DISCHARGE AND WHO TO CALL OR WHERE TO GO IF PROBLEMS ARISE. QUESTIONS ANSWERED. PATIENT AND STATE UNDERSTANDING. WILL FOLLOW NEEDED.
--- NOTE | 2018-12-07 10:20 | NUR ---
PT SITTING UP IN CHAIR. DENIES NEEDS OR CONCERNS AT THIS TIME. AT BEDSIDE. CALL LIGHT WITHIN REACH.
--- NOTE | 2018-12-07 11:24 | NUR ---
PT SITTING IN CHAIR, ALERT AND ORIENTED. PT STATED THAT SHE IS FEELING BETTER, ABLE TO EAT REGULAR DIET. EXTENDED A BLESSING, WILL FOLLOW NEEDED
--- NOTE | 2018-12-07 12:20 | NUR ---
PT REPORTS PAIN "IT'S OK RIGHT NOW" AFTER RECIEIVING IBUPROFEN. AMB HALLWAY WITH FAMILY.
--- NOTE | 2018-12-07 14:05 | PATH ---
[facility] [address], [place] [address] Signed SPECIMEN(S): A APPENDIX SPECIMEN SOURCE: A. APPENDIX CLINICAL HISTORY: Acute appendicitis. FINAL PATHOLOGIC DIAGNOSIS: Appendix, appendectomy: - Acute suppurative appendicitis, periappendicitis and serositis with patchy mucosal necrosis. JVR:ren:C2NR MICROSCOPIC EXAMINATION: Histologic sections of all submitted blocks are examined by light microscopy. These findings, together with the gross examination, support the pathologic diagnosis. GROSS DESCRIPTION: The specimen, labeled "ALFONSO, appendix," is received in formalin and consists of Specimen: Appendix with mesoappendix. Dimensions: 6.5 x 4.3 x 3.0 cm. Serosa: Baldwin-red with focal areas of hemorrhage and adherent exudate. Perforation: Not grossly identified. Inking: Staple line is inked blue. Mucosa: Baldwin-white and edematous with focal areas of hemorrhage and softening. Fecalith: Not grossly identified. Additional: None. [facility] sections are submitted in cassette (A1). AR (under the direct supervision of a pathologist) The Gross Description was prepared using a voice recognition system. The report was reviewed for accuracy; however, sound-alike word errors, addition and/or deletions may occur. If there is any question about this report, please contact Client Services. PERFORMING LABORATORY: The technical component was performed by [employer], [address] [place] [id number] (Superintendent Police: Katerina Craven MD; CLIA# [id number]). Professional interpretation was performed by [facility] PATIENT NAME: TONY ELDER PATHOLOGY DATE OF : 82 REPORT #: [id number] PHYSICIAN: [facility] PCP: THAIS LEBRON MD REPORT IS CONFIDENTIAL AND NOT TO BE RELEASED WITHOUT AUTHORIZATION [address] [address] [place] [address] (Superintendent Police: Dale Chang M.D.). Diagnostician: Dale Chang MD Pathologist Electronically Signed 12/07/2018 Copies: ~ PATIENT NAME: TONY ELDER PATHOLOGY DATE OF : 82 REPORT #: [id number] PHYSICIAN: [facility] PCP: THAIS LEBRON MD REPORT IS CONFIDENTIAL AND NOT TO BE RELEASED WITHOUT AUTHORIZATION
--- NOTE | 2018-12-07 14:05 | NUR ---
PT SITTING UP IN RECLINER WATCHING TV. RATING PAIN 3/10, REQUESTED TYLENOL MEDICATED AT THIS TIME. ASLEEP ON COUCH. PT GIVEN FRESH ICE WATER. REPORTS SHE HAD BM THIS AFTERNOON. CALL LIGHT WITHIN REACH.
--- NOTE | 2018-12-07 15:40 | NUR ---
PT AMB HALLWAY WITH FAMILY, RAE WELL.
--- NOTE | 2018-12-07 17:53 | NUR ---
PT SITTING UP IN BED WATCHING TV. REPORTS THAT SHE FEELS LIKE SHE HAD A PRETTY GOOD DAY. PT HAS BEEN AMB, EATING WELL, PAIN WELL CONTROLLED THIS SHIFT. CURRENTLY RATES PAIN 2/10. DENIES NEEDS OR CONCERNS AT THIS TIME. CALL LIGHT WITHIN REACH.
--- NOTE | 2018-12-07 19:02 | NUR ---
CHARGE NURSE REPORT RECEIVED. PT WITH NO NEEDS AT THIS TIME.
--- NOTE | 2018-12-07 19:49 | NUR ---
REPORT RECEIVED FROM DAY SHIFT RN. PT LYING IN BED, ALERT AND ORIENTED. DENIES PAIN OR OTHER NEEDS AT THIS TIME. CALL LIGHT IN REACH.
--- NOTE | 2018-12-07 20:30 | NUR ---
PT SITTING UP IN CHAIR VISITING WITH . PM MEDS ADMINISTERED WITHOUT DIFFICULTY. PT TRANSFERRED SELF BACK TO BED, RAE WELL. MEDICATED WITH PRN TYLENOL FOR C/O 2/10 ABD PAIN. ASSESSMENT COMPLETE. MIDLINE ABD INCISION C/D/I, SUTURES WELL APPROXIMATED AND OPEN TO AIR. CALL LIGHT IN REACH.
--- NOTE | 2018-12-08 00:11 | NUR ---
IV ABX FINISHED INFUSING. MEDICATED PT WITH PRN MOTRIN FOR C/O 04/05 ABD PAIN. CRACKERS GIVEN. PT DENIES OTHER NEEDS AT THIS TIME.
--- NOTE | 2018-12-08 00:15 | NUR ---
PT OOB TO AMB TO BR WITH MINIMAL ASSIST TO VOID 550 ML YELLOW URINE. NOTED PT TO BE SWEATY, LINENS FRESHENED, PT REFUSED CLEAN GOWN. PT BACK TO BED, CALL LIGHT IN REACH.
--- NOTE | 2018-12-08 02:40 | NUR ---
PT RESTING IN BED. MEDICATED WITH PRN TYLENOL FOR 2/10 ABD PAIN. PT DENIES FURTHER NEEDS AT THIS TIME. CALL LIGHT IN REACH.
--- NOTE | 2018-12-08 06:03 | NUR ---
PT MEDICATED WITH PRN IBUPROFEN FOR ABD PAIN. UP TO BR TO VOID 450 ML CONCENTRATED YELLOW URINE AND HAVE LARGE LOOSE BM. LINENS CHANGED DUE TO PT SWEATING. PT BACK TO BED, NO OTHER REQUESTS AT THIS TIME.
--- NOTE | 2018-12-08 06:28 | NUR ---
PT SLEPT WELL THROUGHOUT THE NIGHT. UP TO AMB TO BR WITH MINIMAL ASSIST. CONTINUED TO ALTERNATE TYLENOL AND MOTRIN THROUGH THE NIGHT TO CONTROL PAIN. PT RATES PAIN 2/10. MIDLINE ABD INCISION WELL APPROXIMATED. LAP SITES APPROXIMATED, ALL INCISIONS OPEN TO AIR. NO DRAINAGE OR REDNESS NOTED. PT HAD BM 12/09/19, NO C/O NAUSEA. RAE REG DIET.
[2018-12-08] MEDS ORDERED: CIPRO500 MG PO (07:58)
[2018-12-08] MEDS ORDERED: FLAGYL500 MG PO (07:59)
[2018-12-08] MEDS ORDERED: DILAUDID2 MG PO (08:01)
--- NOTE | 2018-12-08 08:20 | NUR ---
PT SITTING UP IN BED EATING BREAKFAST UPON THIS RN ENTERING ROOM. ASSESSMENT COMPLETED. PT SBA TO RESTROOM. AMB BACK TO BED INDEPENDENTLY. IV ABX STARTED. PT AWAITING DC THIS AM. DENIES PAIN OR OTHER CONCERNS AT THIS TIME. CALL LIGHT WITHIN REACH.
--- NOTE | 2018-12-08 10:00 | NUR ---
IV ABX COMPLETE. IV DC'D, CATH TIP INTACT. PT DENIES PAIN AT THIS TIME. WORKING ON GETTING DRESSED INDEPENDENTLY. PRESENT.
--- NOTE | 2018-12-08 11:01 | DS ---
[facility] [address] [facility] [place] [address] Signed ADMISSION DATE: 12/03/2018 DISCHARGE DATE: 12/08/2018 FINAL DIAGNOSIS: Suppurative appendicitis with early necrosis. PROCEDURE PERFORMED: Laparoscopic converted to open appendectomy. HISTORY OF PRESENT ILLNESS: Tony is a 38-year-old female, who, for six days, had right lower quadrant abdominal pain with nausea and fevers. She had been to her primary care provider. Laboratory work showed her white count at 12.6. She was sent for a CT scan and had an intense inflammatory process in the right lower quadrant with involving thickened small bowel, but no obvious abscess or free air. I was asked to admit her as a general surgeon on-call. HOSPITAL COURSE: Tony was admitted as above and started on IV fluids and antibiotics. There was a large surgery going late into the night, so we took her the following morning. Nevertheless, she was much more hydrated and actually overall feeling better. We had to convert her from a laparoscopic to an open approach to a periumbilical incision. She had tremendous inflammatory changes of the cecum, terminal ileum and the appendix, all adherent to the lateral abdominal sidewall. It actually took some effort with finger dissection to work that loose and bring it up to the midline. We could not clamp the base of the appendix nor the mesoappendix because it was so thickened and inflamed. We simply had to divide it and over-sew the mesoappendix and we put a suture ligature around the appendiceal stump. We had to dunk that and over-sew that with Vicryl suture as well. She has been on an expected postoperative course. We left her on cefepime and Flagyl throughout the hospital stay. She now has no fever. She looks and feels much better. She has had several bowel movements and is tolerating regular diet. All the abdominal distention is gone. All her incisions are healing well without any local signs or symptoms of infection. At this point, she has reached discharge status. DISCHARGE PLANS AND MEDICATIONS: Tony is going to be discharged home with a prescription for Cipro 500 mg one tablet p.o. b.i.d. for four days along with Flagyl 500 mg p.o. t.i.d. for four days. We will give her Dilaudid 2 mg tablets, 1-3 tablets p.o. q.4 hours p.r.n. for severe postoperative pain. We will dispense 25 tablets with no refills. Otherwise, she can use Tylenol, ibuprofen or naproxen per just soiy-uzp-rkzvvpa for lrbk-ul-nsctfgsj postoperative pain. She can continue the Prozac 20 mg p.o. daily at home. She will follow a regular diet. Electronically Signed By: CHANG BEYER MD 12/08/18 1101 PATIENT NAME: TONY ELDER DISCHARGE SUMMARY DATE OF : 82 REPORT #: [id number] PHYSICIAN: CHANG BEYER MD PCP: THAIS LEBRON MD REPORT IS CONFIDENTIAL AND NOT TO BE RELEASED WITHOUT AUTHORIZATION [address] [address] Signed She can perform her activities of daily living including walking up and down stairs, showering and bathing as usual. She should not do any heavy pushing, pulling, or lifting over 20 pounds. 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 She is welcome to return to work in a few days when she is feeling better. She should not drive while on narcotics. She will be back in the office in 7 to 10 days for followup. In the meantime, she will leave her incisions open to air. She has expressed understanding and agrees above plan. Chang Beyer MD ALB/MODL /[id number] cc: MD Chang Wheeler MD Copies: THAIS LEBRON MD, ANDREW L MD ~ Electronically Signed By: CHANG BEYER MD 12/08/18 1101 PATIENT NAME: TONY ELDER DISCHARGE SUMMARY DATE OF : 82 REPORT #: [id number] PHYSICIAN: CHANG BEYER MD PCP: THAIS LEBRON MD REPORT IS CONFIDENTIAL AND NOT TO BE RELEASED WITHOUT AUTHORIZATION
--- NOTE | 2018-12-08 11:13 | NUR ---
MET WITH PT IN [facility] SHE WAS WAITING FOR HER RIDE HOME. SHE STATED SHE IS FEELING MUCH BETTER, ANXIOUS TO GET HOME. WE BOTH DECIDED WITH ALL BOYS AT HER HOME, SHE WOULD TRY TO MILK THIS FOR LONG SHE CAN! EXTENDED A BLESSING, WILL FOLLOW NEEDED
== END 2018-12-08 10:25 | disposition home or self-care (01) | DRG 342 ==
LOC: MS 13:34 → EDSTATUS 13:45 → MS 15:56
PROVIDERS: ADMIT Colon & Rectal Surgery
PROC: 0WJG4ZZ Inspection of Peritoneal Cavity, Percutaneous Endoscopic Approach (ICD-10-PCS; 2018-12-04)
PROC: 0DTJ0ZZ Resection of Appendix, Open Approach (ICD-10-PCS; principal; 2018-12-04 07:00)
PROC: 3E02340 Introduction of Influenza Vaccine into Muscle, Percutaneous Approach (ICD-10-PCS; 2018-12-05)
DX: K35.890 Other acute appendicitis without perforation or gangrene (principal); Z68.41 Body mass index [BMI] 40.0-44.9, adult; E66.9 Obesity, unspecified; E86.0 Dehydration; F32.9 Major depressive disorder, single episode, unspecified; Z79.899 Other long term (current) drug therapy; Z53.31 Laparoscopic surgical procedure converted to open procedure; Z23 Encounter for immunization
CPT/HCPCS: 00840; 36415; 80048; 83735; 84100; 85025; 90688; C9113; G0378; J0131; J0330; J0692; J1100; J1170; J1650; J1885; J2250; J2405; J2550; J2704; J3475; J7060; J7120; J7121

== ENCOUNTER 2023-03-14 03:23 | Emergency (ER) | payer OTHER ==
[~2023-03-14] VITALS: Ht 162.6 cm; Wt 91.8 kg
[~2023-03-14 03:23] MED LIST changes: +CIPRO500 MG PO; +DILAUDID2 MG PO; +FLAGYL500 MG PO
[2023-03-14 03:40] LABS: BASOPHILS 1.1 % (0-2); HEMATOCRIT 35.6 % (35.0-50.0); LYMPHOCYTES 41.2 % (24-44); MCH 27.4 (27-36); MCHC 33.7 g/dl (30-36); MCV 81.3 fl (81-99); MONOCYTES 8.5 % (0-12); NEUTROPHILS 47.2 % (39-80); PLATELET COUNT 576 K/uL (140-440); RBC 4.38 M/ul (4.3-5.7); RDW 14.6 (10.5-15.0)
[2023-03-14] MEDS ORDERED: LISINOPRIL20 MG PO (03:46)
[2023-03-14] MEDS ORDERED: LABETALOL HCL200 MG PO (03:46)
[2023-03-14] MEDS ORDERED: OZEMPIC1 MG/0.71 SQ (03:46)
[2023-03-14 03:55] LABS: ALBUMIN/GLOBULIN RATIO 0.75 (1.1-2.4); ANION GAP 14.6 (7-21); BILIRUBIN, TOTAL 0.3 ng/dL (0.2-1.0); BUN/CREATININE RATIO 12.98 (6.0-28.6); CALCIUM 8.7 mg/dL (8.5-10.1); CREATININE, SERUM 0.77 mg/dL (0.55-1.02); POTASSIUM 3.6 mmol/L (3.5-5.1)
[2023-03-14 04:17] LABS: BILIRUBIN, URINE NEGATIVE (negative); BLOOD/HGB, URINE TRACE-I (Negative); KETONE, URINE NEGATIVE (Negative); LEUK ESTERASE, URINE MODERATE (negative); NITRITE, URINE NEGATIVE (negative)
[2023-03-14 04:22] LABS: EPITHELIAL CELLS, URINE SQUAMOUS 2+ /lpf (0-1+)
[2023-03-14 04:23] LABS: CRYSTALS, URINE NONE SEEN (0-1+)
[2023-03-14 04:24] LABS: BACTERIA, URINE 2+ /hpf (negative); CASTS, URINE NONE SEEN \\lpf; REFLEX CULTURE, URINE No (No)
[2023-03-14 05:16] VITALS: BP 133/82
--- NOTE | 2023-03-15 09:15 | EKG ---
[facility] [address] [facility] [place], [place] [address] Signed Normal sinus rhythm Prolonged QT Abnormal ECG No previous ECGs available Confirmed by LINA BISHOP MD ([id number]) on 03/15/2023 9:15:02 AM Electronically Signed By: LINA BISHOP 03/15/23 0915 PATIENT NAME: TONY ELDER Electrocardiogram DATE OF : 82 PHYSICIAN: LINA BISHOP REPORT #: [id number] REPORT IS CONFIDENTIAL AND NOT TO BE RELEASED WITHOUT AUTHORIZATION
== END 2023-03-14 05:16 | disposition home or self-care (01) ==
LOC: ED 03:23
PROVIDERS: Internal Medicine
DX: I95.1 Orthostatic hypotension (principal); Z88.5 Allergy status to narcotic agent; Z79.899 Other long term (current) drug therapy
CPT/HCPCS: 36415; 71045; 80053; 81001; 85025; 85379; 87088; 93005; 93010; 99284-25; J7030

== ENCOUNTER 2024-01-28 06:25 | Day surgery (SDC) | payer OTHER ==
[2024-01-26 10:27] VITALS: BP 134/94
[~2024-01-28] VITALS: Ht 162.6 cm; Wt 84.1 kg
[~2024-01-28 06:25] MED LIST changes: +LABETALOL HCL200 MG PO; +LACTATED RINGER'S 1,000 ML IV SCH; +LISINOPRIL20 MG PO; +OZEMPIC1 MG/0.71 SQ
[2024-01-28 06:39] VITALS: BP 126/76
[2024-01-28] MEDS ORDERED: BUPIVACAINE HCL 0.25% 50 ML MDV ONE (06:57)
[2024-01-28] MEDS ORDERED: LIDOCAINE 1% W/ EPI 1:200,000 30 ML SDV ONE (06:57)
--- NOTE | 2024-01-28 06:58 | NUR ---
JESSI S O WITH PT AND WAITING. PT COMFORTABLE.
[2024-01-28] MEDS ORDERED: IBLOOD GLUCOSE TEST STRIP 1 EA TEST VI PRN ×2 (07:00→08:00)
[2024-01-28] MEDS ORDERED: metroNIDAZOLE/SODIUM CHLORIDE 500 MG/100 ML PIGGYBACK IV SCH (07:00)
[2024-01-28] MEDS ORDERED: LIDOCAINE HCL 1% 5 ML SDV INJ ONE (07:00)
[2024-01-28] MEDS ORDERED: CEFAZOLIN SODIUM 2 GM/20 ML SYR IV SCH (07:00)
[2024-01-28] MEDS ORDERED: ENOXAPARIN SODIUM 40 MG/0.4 ML SYR SUB-Q SCH (07:00)
--- NOTE | 2024-01-28 07:02 | NUR ---
[employer] IN TO [place]LE;K WITH PT.
[2024-01-28] MEDS ORDERED: KETOROLAC TROMETHAMINE 30 MG/ML VIAL ONE (07:08)
[2024-01-28] MEDS ORDERED: SUGAMMADEX SODIUM 200 MG/2 ML ML ONE (07:08)
[2024-01-28] MEDS ORDERED: DEXAMETHASONE SOD PHOS 4 MG/ML VIAL ONE (07:08)
[2024-01-28] MEDS ORDERED: KETAMINE in NS 50 MG/5 ML SYR ONE (07:08)
[2024-01-28] MEDS ORDERED: dexmedeTOMIDine HCl 200 MCG/2 ML VIAL ONE (07:08)
[2024-01-28] MEDS ORDERED: ROCURONIUM BROMIDE 50 MG/5 ML SYR ONE (07:08)
[2024-01-28] MEDS ORDERED: fentaNYL citrate 100 MCG/2 ML VIAL ONE (07:08)
[2024-01-28] MEDS ORDERED: ondansetron HCL 4 MG/2 ML VIAL ONE (07:08)
[2024-01-28] MEDS ORDERED: LIDOCAINE HCL 2% 20 MG/ML VIAL INJ ONE (07:08)
[2024-01-28] MEDS ORDERED: LIDOCAINE HCL 2% 5 ML SDV ONE (07:08)
[2024-01-28] MEDS ORDERED: ACETAMINOPHEN 1,000 MG/100 ML VIAL ONE (07:08)
[2024-01-28] MEDS ORDERED: MIDAZOLAM HCL 2 MG/2 ML VIAL ONE (07:08)
[2024-01-28] MEDS ORDERED: SCOPOLAMINE 1 MG/3 DAYS PATCH 1 EACH TDSY ONE (07:27)
[2024-01-28] MEDS ORDERED: METOCLOPRAMIDE HCL 10 MG/2 ML SDV ONE (07:27)
[2024-01-28] MEDS ORDERED: LACTATED RINGER'S 1,000 ML IV ONE (07:59)
[2024-01-28] MEDS ORDERED: HYDROmorphone HCL 1 MG/ML SYR IV PRN ×2 (08:00→09:00)
[2024-01-28] MEDS ORDERED: droPERidol 5 MG/2 ML VIAL IV PRN (08:00)
[2024-01-28] MEDS ORDERED: NALOXONE HCL 0.4 MG SYR IV PRN ×2 (08:00→09:00)
[2024-01-28] MEDS ORDERED: fentaNYL citrate 50 MCG/ML SDV IV PRN (08:00)
[2024-01-28] MEDS ORDERED: PROCHLORPERAZINE EDISYLATE 10 MG/2 ML VIAL IV PRN ×2 (08:00→09:00)
[2024-01-28] MEDS ORDERED: ondansetron HCL 4 MG/2 ML VIAL IV PRN ×2 (08:00→09:00)
[2024-01-28] MEDS ORDERED: ePHEDrine sulfate 50 MG/ML AMP ONE (08:01)
[2024-01-28] MEDS ORDERED: OXYCODONE HCL 5 MG TAB PO PRN (09:00)
[2024-01-28 09:17] VITALS: BP 124/70
[2024-01-28] MEDS ORDERED: SEVOFLURANE 250 ML BTL INH ONE (09:32)
--- NOTE | 2024-01-28 09:35 | NUR ---
01/28/24 0935 Daysi Gordon 0845- PT ARRIVES TO THE PACU WITH AN ORAL AIRWAY IN PLACE. JAW THRUST NEEDED TO MAINTAIN AIRWAY. ALL MONITORS PUT IN PLACE. R WRIST HAS LR INFUSING. VSS. PT IS NON-REACTIVE TO VERBAL AND TACTILE STIMULI. 6L OF O2 IN PLACE VIA MASK. SURGICAL SITE IS CLEAN, DRY AND INTACT. ICE PACK PUT ON SURGICAL SITE AND PILLOW PUT IN PLACE FOR SPLINTING. SCOPALAMINE PATCH BEHIND R EAR. 0854- PT BEGINS TO SWALLOW AND LIFTING HEAD OFF THE PILLOW SLIGHTLY. PT OPENS EYES TO VERBAL STIMULI AND ABLE TO FOLLOW COMMANDS TO OPEN HER MOUTH. ORAL AIRWAY REMOVED AND O2 TURNED OFF AND REMOVED. PT DENIES PAIN AND NAUSEA. PT EASILY FALLS BACK TO SLEEP. 0908- PT EASILY WAKES TO VERBAL STIMULI AND CONTINUES TO DENY PAIN AND NAUSEA. VSS. PLAN OF CARE DISCUSSED. 0915- PT TRANSFERED TO DAY SURGERY. BEDSIDE REPORT GIVEN TO ROSIBEL MACHUCA. SURGICAL SITE ASSESSED TOGETHER, AND IS CLEAN, DRY AND INTACT. NO QUESTIONS OR CONCERNS, AND CARE TURNED OVER AT THIS TIME.
--- NOTE | 2024-01-28 09:57 | NUR ---
0915 ON RETURN CRACKERS AND JELLO AND WATER GIVEN. CALL LIGHT GIVEN. TALKING WITH Babak BOWEN.
--- NOTE | 2024-01-28 10:13 | OR ---
[facility] [address] [place], [place] [address] Signed DATE OF OPERATION: 01/28/2024 SURGEON: Chang Beyer MD PREOPERATIVE DIAGNOSIS: Periumbilical incisional hernia (3 x 4 cm). POSTOPERATIVE DIAGNOSIS: Periumbilical incisional hernia (3 x 4 cm). PROCEDURE: Primary periumbilical incisional herniorrhaphy. ESTIMATED BLOOD LOSS: None. INDICATIONS: Tony is a 43-year-old female, who I helped with a laparoscopic converted to open appendectomy back in 2019 at the age of 38. We had closed her midline incision with our standard interrupted igqnpk-su-bijpw PDS sutures. In the meantime, she has lost a significant amount of weight. She is planning on having abdominoplasty. Her plastic surgeon realized that she had a mostly reducible periumbilical incisional hernia. Of course, he wanted that repaired before the abdominoplasty surgery. Tony did not realize she had an incisional hernia. She did have a CT scan performed by her primary care provider. The fascial defect was measured at 4.6 x 2.9 cm. The hernia sac was 8.3 x 10.2 x 4.5 cm. 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 Her happens to be one of our they live just down the hill from my house. Tony came to the office and we had examined her. We felt that it was mostly reducible. I gave Tony our brochure on hernias. We looked at it carefully. We talked about repairing her periumbilical incisional hernia vertically with interrupted Prolene sutures so that she could then come and have her abdominoplasty. We would lyse all the adhesions and make sure all the bowel was away from that area. Usually these can be day surgeries and the patients can go home afterwards. There is risk to the surgery including, but not limited to bleeding, infection, scarring, change in contour of the skin, damage to bowel, recurrent hernias and chronic pain. She had expressed understanding and wished to proceed. PROCEDURE IN DETAIL: I met with Tony and her in our preop area. With our nurse in the room, we all agreed on the periumbilical incisional hernia and we marked that appropriately. After Electronically Signed By: CHANG BEYER MD 01/28/24 1013 PATIENT NAME: TONY ELDER OPERATIVE REPORT DATE OF : 82 REPORT #: [id number] PHYSICIAN: CHANG BEYER MD PCP: THAIS LEBRON MD REPORT IS CONFIDENTIAL AND NOT TO BE RELEASED WITHOUT AUTHORIZATION [facility] [address] [place], [place] [address] Signed this, Tony was taken into the operating room and placed in the supine position. She was placed under general endotracheal tube anesthesia. She was given preoperative antibiotics along with subcutaneous Lovenox. SCDs were utilized. A Tanner catheter was inserted with return of clear yellow urine without difficulty. She was then prepped and draped in the usual sterile fashion. We used her previous periumbilical incision on the right side of the umbilicus. We carried this down around the hernia sac bluntly and with the cautery. We had open the hernia sac and it was down to the edge of the fascia. The fascia measured 3 x 4 cm. She had a few adhesions of omentum within the area that we took down with the help of the cautery. We also took the falciform ligament down about 5 to 6 cm towards the liver to move it out of the way. This gave us completely free abdominal wall. We left the umbilical skin intact to the midline fascia and we left all the tissue intact to the left of the umbilicus as well. Hopefully, she will be able to keep her umbilicus in the future, but she is aware she might lose the umbilicus with the abdominoplasty. After this, we brought the midline fascia back together with interrupted #1 [id number]-rkkrg and simple interrupted sutures. We injected local anesthetic into the abdominal wall along with the subcutaneous tissues. The wound was irrigated and suctioned out until clear. We closed the wound in layers with interrupted 3-0 Monocryl sutures including the dermis. We brought the skin back together with shiloh. Dry gauze and tape was then applied. Her Tanner catheter was removed without difficulty. She was awakened from her anesthesia, extubated in the OR and taken to the recovery room in stable condition. Chang Beyer MD ALB/MODL /[id number] cc: MD Thais Steward MD Copies: CHANG BEYER MD Electronically Signed By: CHANG BEYER MD 01/28/24 1013 PATIENT NAME: TONY ELDER OPERATIVE REPORT DATE OF : 82 REPORT #: [id number] PHYSICIAN: CHANG BEYER MD PCP: THAIS LEBRON MD REPORT IS CONFIDENTIAL AND NOT TO BE RELEASED WITHOUT AUTHORIZATION [address] [place], [place] [address] Signed THAIS LEBRON MD ~ Electronically Signed By: CHANG BEYER MD 01/28/24 1013 PATIENT NAME: TONY ELDER OPERATIVE REPORT DATE OF : 82 REPORT #: [id number] PHYSICIAN: CHANG BEYER MD PCP: THAIS LEBRON MD REPORT IS CONFIDENTIAL AND NOT TO BE RELEASED WITHOUT AUTHORIZATION
[2024-01-28 10:19] VITALS: BP 125/72
[2024-01-28 11:18] VITALS: BP 127/68
--- NOTE | 2024-01-28 11:20 | NUR ---
DOESNT FEEL NEED TO VOID. NOT READY.
--- NOTE | 2024-01-28 11:27 | NUR ---
REQUESTS 2ND PILL FOR PAIN STILL 2/10 ATE CRACKERS.
--- NOTE | 2024-01-28 12:07 | NUR ---
1145 AMB SLOWLY TO BR VOIDS 350 MARILIN URINE. DECIDES SHES READY TO GO HOME.
--- NOTE | 2024-01-29 19:22 | EKG ---
[facility] [address] [facility] [place] [address] Signed Normal sinus rhythm Normal ECG When compared with ECG of 14-MAR-2023 03:35, No significant change was found Confirmed by Mayda Can MD ([id number]) on 01/29/2024 7:22:32 PM Electronically Signed By: MAYDA CAN MD 01/29/241921 PATIENT NAME: TONY ELDER Electrocardiogram DATE OF : 82 PHYSICIAN: MAYDA CAN MD REPORT #: [id number] REPORT IS CONFIDENTIAL AND NOT TO BE RELEASED WITHOUT AUTHORIZATION
== END 2024-01-28 11:50 | disposition home or self-care (01) ==
LOC: DS 06:25
PROVIDERS: ATTEND Colon & Rectal Surgery
PROC: 0WQF0ZZ Repair Abdominal Wall, Open Approach (ICD-10-PCS; principal; 2024-01-28 07:30)
DX: K43.2 Incisional hernia without obstruction or gangrene (principal); I10 Essential (primary) hypertension; Z79.899 Other long term (current) drug therapy; Z88.5 Allergy status to narcotic agent; Z90.49 Acquired absence of other specified parts of digestive tract
CPT/HCPCS: 00750; 93005; 93010; A9270; J0131; J0690; J1100; J1650; J1885; J2003; J2250; J2405; J2765; J3010; J3490; J7121